=== PATIENT | female | born 1985 | race Caucasian/White ===

== ENCOUNTER → 2016-06-22 | Outpatient (CLI) | payer OTHER ==
[~2016-06-22] MED LIST: E-Z-PAQUE 96% w/w SUSP 176GM BTL As Ordered ONE
--- NOTE | 2016-06-24 15:56 | REP ---
SMALL BOWEL FOLLOW-THROUGH: The procedure was performed under the direct supervision of Dr. Carrillo. The images were reviewed with Dr. Carrillo. The control manager film shows no organomegaly or pathological masses. The intestinal gas pattern is nonspecific. Liquid barium was administered and the barium column was followed through the small bowel to the level of the terminal ileum. Small bowel transit time was approximately 90 minutes. The terminal ileum is not optimally distended. There is crowding of multiple pelvic small bowel loops. CT enterography to more adequately evaluate is suggested. The remainder of the small bowel appears unremarkable. IMPRESSION: The terminal ileum is not optimally distended. There is crowding of multiple pelvic small bowel loops. CT enterography to more adequately evaluate is suggested. 1 minute and 33 seconds of fluoroscopy time was utilized for this procedure. Reviewed by DEJAN Rojas 06/24/2016 04:25 PEdited and Signed by Will Carrillo MD 06/24/2016 04:43 P
== END ==
LOC: M RAD 09:18
PROVIDERS: ATTEND Internal Medicine Gastroenterology
DX: R93.3 Abnormal findings on diagnostic imaging of other parts of digestive tract (principal)

== ENCOUNTER → 2016-07-03 | Outpatient (CLI) | payer OTHER ==
[~2016-07-03] VITALS: Ht 175.3 cm; Wt 73.5 kg
[~2016-07-03] MED LIST changes: -E-Z-PAQUE 96% w/w SUSP 176GM BTL As Ordered ONE; +LIDOCAINE 2% INJ 100 MG/5 ML SYRINGE As Ordered ONE; +LINZ290C PO; +NS 1,000 ML IV ONE; +PROPOFOL 200 MG/20 ML VIAL As Ordered ONE; +VITA100054 PO; +VITA100072 PO
--- NOTE | 2016-07-03 14:38 | ROOR ---
Patient Name: Nikki Laureano Procedure Date: 07/03/2016 2:11 PM Date of : 1985 Age: 31 Room: [facility] Gender: Female Note Status: Finalized Procedure: Colonoscopy Indications: Generalized abdominal pain, Abnormal CT of the GI tract, Abnormal small bowel series, (large colonic stool impaction and narrowed/poorly distended ileum) Providers: Joshua REYNAGA MD Referring MD: Yocasta Klein MD Requesting Provider: Medicines: Monitored Anesthesia Care Complications: No immediate complications. Procedure: Pre-Anesthesia Assessment: - The heart rate, respiratory rate, oxygen saturations, blood pressure, adequacy of pulmonary ventilation, and response to care were monitored throughout the procedure. The Colonoscope was introduced through the anus and advanced to 8 cm into the ileum. The colonoscopy was performed without difficulty. The patient tolerated the procedure well. The quality of the bowel preparation was good. Findings: The perianal and digital rectal examinations were normal. (Exam: Complete, Prep: Good or Excellent.) A 7 mm polyp was found in the ascending colon. The polyp was flat. The polyp was removed with a cold snare. Resection and retrieval were complete. The colon (entire examined portion) was redundant. The exam was otherwise normal throughout the examined colon. The terminal ileum appeared normal. Impression: - One 7 mm polyp in the ascending colon, removed with a cold snare. Resected and retrieved. - The colon was otherwise normal. - The examined portion of the ileum was normal. Recommendation: - Telephone endoscopist for pathology results in 2 weeks. - the examination of the reportedly "narrowed area" was normal today. I will order the recommended CT enterography (as per radiology request). We do not have this test available at [facility]-This will be done at [facility] - My office will call you to get this scheduled. Joshua Reynaga MD Joshua REYNAGA MD 07/03/2016 2:38:44 PM This report has been signed electronically. Number of Addenda: 0 Note Initiated On: 07/03/2016 2:11 PM Estimated Blood Loss: Estimated blood loss: none.
[2016-07-03 14:55] VITALS: BP 116/90
== END | disposition home or self-care (01) ==
LOC: M OPP 13:05
PROVIDERS: ATTEND Internal Medicine Gastroenterology
DX: R93.3 Abnormal findings on diagnostic imaging of other parts of digestive tract (principal); R10.9 Unspecified abdominal pain; D12.2 Benign neoplasm of ascending colon; Q43.8 Other specified congenital malformations of intestine; Z80.0 Family history of malignant neoplasm of digestive organs; R19.7 Diarrhea, unspecified; G43.909 Migraine, unspecified, not intractable, without status migrainosus; R42 Dizziness and giddiness; H93.19 Tinnitus, unspecified ear; H91.90 Unspecified hearing loss, unspecified ear; Z86.69 Personal history of other diseases of the nervous system and sense organs; Z88.8 Allergy status to other drugs, medicaments and biological substances; Z88.0 Allergy status to penicillin; Z79.899 Other long term (current) drug therapy